=== PATIENT | male | born 1935 | race Caucasian/White ===

== ENCOUNTER → 2019-01-09 | Outpatient (CLI) | payer MEDICARE ==
--- NOTE | 2019-01-09 10:41 | PCVCIMAG ---
APPROVED REPORT Indications Stenosis Risk Factors Hyperlipidemia Diabetes, Doppler Spectral Velocity Analysis PSV / EDVPSV / EDV ECA (R) 111 / 8 cm/sECA (L) 98 / 8 cm/s dICA (R) 81 / 26 cm/sdICA (L) 79 / 32 cm/s [place] (R) 89 / 29 cm/smICA (L) 69 / 24 cm/s pICA (R) 72 / 23 cm/spICA (L) 81 / 18 cm/s Bulb (R) 68 / 18 cm/sBulb (L) 64 / 19 cm/s dCCA (R) 92 / 19 cm/sdCCA (L) 110 / 29 cm/s mCCA (R) 96 / 18 cm/smCCA (L) 106 / 22 cm/s Vert (R) 40 / 13 cm/sVert (L) 55 / 11 cm/s ICA/CCA 0.74 ICA/CCA 0.92 Basic Measurements Blood Pressure: Pulses: Right Left RightLeft Brachial(Sitting) 118/[id number]/70mmHgTemporal Real Time B-Mode Imaging Vert. (R)AntegradeVert. (L)Antegrade Findings The right carotid bulb has moderate calcified plaque. The right proximal internal carotid artery shows <40% stenosis. The right common carotid artery shows no significant stenosis. The right external carotid artery shows no significant stenosis. The left carotid bulb has minimal plaque. The left proximal internal carotid artery shows no significant stenosis. The left common carotid artery shows no significant stenosis. The left external carotid artery shows no significant stenosis. Conclusion 1. Right internal carotid artery stenosis (<40%) 2. Left internal carotid artery plaquing without significant stenosis 3. Antegrade vertebral flow
--- NOTE | 2019-01-09 11:33 | PCVCIMAG ---
APPROVED REPORT Study performed: 01/09/2019 10:31:25 EXAM: Comprehensive 2D, Doppler, and color-flow Echocardiogram Patient Location: Echo lab Room #: 2Status: routine BSA: 2.38 HR: 82 bpmBP: 122/70 mmHg Rhythm: NSR Other Information Study Quality: FairAdequate Risk Factors: Cardiac Risk Factors: HTN, Hyperlipidemia, DM, obesity Indications Aortic Valve Disease Mitral Valve Disease CAD Hypertension/HDD S/P stent 2D Dimensions IVSd: 9.83 (7-11mm)LVOT Diam: 23.61 (18-24mm) LVDd: 49.92 mm PWd: 9.54 (7-11mm)Ascending Ao: 37.63 (22-36mm) LVDs: 30.77 (25-40mm) Left Atrium: 32.56 (27-40mm) Aortic Root: 27.55 mm LV Single Plane 4CH: 61.93 % LV Single Plane 2CH: 59.29 % Biplane EF: 60.7 % Volumes Left Atrial Volume (Systole) Single Plane 4CH: 107.70 mLSingle Plane 2CH: 96.35 mL Biplane LA Volume: 104.00 mLLA ESV Index: 44.00 mL/m2 Aortic Valve AoV Peak Jaspal.: 2.19 m/s AO Peak Gr.: 18.33 mmHgLVOT Max P.75 mmHg AO Mean Gr.: 9.85 mmHgLVOT Mean P.10 mmHg AO V2 Mean: 1.47 m/sLVOT Max V: 1.11 m/s AO V2 VTI: 37.70 cmLVOT Mean V: 0.85 m/s ARTURO (VTI): 2.67 co4SHSA V1 VTI: 23.02 cm ARTURO Vmax: 2.21 cm2 AI Vmax: 3.73 m/sSV (LVOT): 100.73 mL AI [place]: 2.19 m/s2 AI PHT: 495.38 ms Mitral Valve MV Peak Gr.: 16.27 mmHg MV Mean Gr.: 6.58 mmHgE/A Ratio: 0.8 MV Decel. Time: 539.22 ms MV E Max Jaspal.: 1.23 m/s MV A Jaspal.: 1.58 m/s MV Max Jaspal.: 2.02 m/s MV Mean Jaspal.: 1.19 m/s MV VTI: 562.52 mm MVA VTI: 179.07 mm2 MV PHT: 132.35 ms MVA (PHT): 1.66 cm2 IVRT: 83.04 ms TDI E/Lateral E': 17.57E/Medial E': 30.75 Medial E' Jaspal.: 0.04 m/s Lateral E' Jaspal.: 0.07 m/s Pulmonary Valve PV Peak Jaspal.: 1.10 m/sPV Peak Gr.: 4.84 mmHg Pulmonary Vein P Vein S: 0.63 m/sP Vein A: 0.27 m/s P Vein D: 0.23 m/sP Vein A Dur.: 128.0 msec P Vein S/D Ratio: 2.74 Tricuspid Valve TR Peak Jaspal.: 2.76 m/s TR Peak Gr.: 30.55 mmHg TV Vmax: 0.52 m/sPA Pressure: 38.00 mmHg Left Ventricle The left ventricle is normal size. There is normal LV segmental wall motion. There is normal left ventricular wall thickness. Left ventricular systolic function is normal. The left ventricular ejection fraction is within the normal range. LVEF is 60-65%. Mild diastolic dysfunction is present (impaired relaxation pattern). Right Ventricle The right ventricle is normal size. The right ventricular systolic function is normal. Atria Left atrium is moderately dilated. The right atrium size is normal. Aortic Valve Aortic valve leaflets are moderately sclerotic; trileaflet Mild aortic regurgitation. Mild aortic stenosis. Mitral Valve Moderate mitral annular calcification. There is no mitral valve regurgitation noted. Mild-moderate mitral stenosis (peak gradient 16 mm, mean gradient 6 mmHg). Tricuspid Valve The tricuspid valve is normal in structure. Mild tricuspid regurgitation with a PA pressure of 38 mmHg. Mild pulmonary hypertension. Pulmonic Valve The pulmonary valve is normal in structure. There is no pulmonic valvular regurgitation. Great Vessels The aortic root is normal in size. The ascending aorta is normal in size. Aortic arch is normal in caliber. IVC is normal in size and collapses >50% with inspiration. Pericardium There is no pericardial effusion. There is no pleural effusion. <Conclusion> Left ventricular systolic function is normal. There is normal LV segmental wall motion. LVEF is 60-65%. Mild diastolic dysfunction Left atrium is moderately dilated. Aortic valve leaflets are moderately sclerotic; trileaflet. Mild stenosis and regurgitation. Moderate mitral annular calcification. No mitral valve regurgitation Mild-moderate mitral stenosis (peak gradient 16 mm, mean gradient 6 mmHg). Mild tricuspid regurgitation with a pulmonary artery pressure of 38 mmHg. There is no pericardial effusion.
== END | disposition home or self-care (01) ==
LOC: PCVCIMAG 09:47
PROVIDERS: ATTEND Internal Medicine
DX: I08.1 Rheumatic disorders of both mitral and tricuspid valves (principal); I65.23 Occlusion and stenosis of bilateral carotid arteries; E11.9 Type 2 diabetes mellitus without complications; I10 Essential (primary) hypertension; E78.5 Hyperlipidemia, unspecified; Z88.0 Allergy status to penicillin; Z91.041 Radiographic dye allergy status; Z88.8 Allergy status to other drugs, medicaments and biological substances
CPT/HCPCS: 36415; 80061; 93005; 93306; 93880; G0463